=== PATIENT | male | born 1930 | race Two or more races ===

== ENCOUNTER 2020-08-10 12:15 | Outpatient (CLI) | payer OTHER ==
[~2020-08-10 12:15] MED LIST: ASPIR 8181 MG PO; HYZAAR 50-12.1 UDTAB PO; LOPRESSOR25 MG PO; LOPRESSOR5 MG/5 ML IV
== END 2020-08-10 15:00 | disposition home or self-care (01) ==
LOC: LAB 12:15
DX: Z20.828 Contact with and (suspected) exposure to other viral communicable diseases (principal)